=== PATIENT | male | born 1995 | race Caucasian/White ===

== ENCOUNTER → 2020-10-24 10:03 | Outpatient (CLI) | payer OTHER, SELFPAY ==
--- NOTE | 2020-10-24 10:06 | DI.RAD.S_ITS ---
PROCEDURE: XR SHOULDER LT MIN 2V INDICATIONS: LEFT SHOULDER PAIN TECHNIQUE: 3 views of the shoulder were acquired. COMPARISON: None. FINDINGS: Bones: No fractures or dislocations. No suspicious bony lesions. Visualized ribs appear intact. Soft tissues: No suspicious soft tissue calcifications. IMPRESSION: Normal left shoulder. Dictated by: Chidi Limon M.D. on 10/24/2020 at 10:41 Approved by: Chidi Limon M.D. on 10/24/2020 at 10:41
== END ==
PROVIDERS: PCP Orthopaedic Surgery; Referring Provider Physical Medicine & Rehabilitation; Visit Provider Physical Medicine & Rehabilitation
DX: M25.512 Pain in left shoulder (principal)
CPT/HCPCS: 73030